=== PATIENT | male | born 1965 | race Caucasian/White ===

== ENCOUNTER 2017-05-13 14:09 | Inpatient (IN) | payer MEDICARE, MEDICAID ==
[~2017-05-13] VITALS: Ht 177.8 cm; Wt 104.3 kg
[2017-05-13 15:03] LABS: BASOPHILS % (AUTO) 1.3 % (0.0-2.0); EOSINOPHILS % (AUTO) 2.3 % (0.0-3.0); HEMATOCRIT 44.8 % (42.0-52.0); HEMOGLOBIN 16.2 G/DL (14.2-18.0); LYMPHOCYTES % (AUTO) 19.9 % (20.0-45.0); MEAN CORPUSCULAR VOLUME 92 FL (80-99); MONOCYTES % (AUTO) 9.5 % (1.0-10.0); PLATELET COUNT 239 K/UL (150-450); RED BLOOD COUNT 4.88 M/UL (4.70-6.10); RED CELL DISTRIBUTION WIDTH 11.2 % (11.6-14.8); WHITE BLOOD COUNT 8.3 K/UL (4.8-10.8)
--- NOTE | 2017-05-13 15:15 | Diagnostic Imaging Report ---
Indication: Headache Technique: Contiguous 5 mm thick transaxial imaging of the head obtained in a Siemens Sensation [address] scanner. Soft tissue and bone windows generated. Automatic Exposure Control was utilized. Total Dose length Product (DLP): [address] Dose Index Volume (CTDIvol): 0.15, 70.38 mGy Comparison: none Findings: The size and configuration of the cortical sulci, basal cisterns, and ventricles are within normal limits for age. There is no mass effect, midline shift, or edema identified. There is no evidence of acute hemorrhage or abnormal intra-axial or extra-axial fluid collections. The bones and soft tissues are unremarkable. Impression: No mass effect, edema or acute bleed. The CT scanner at [facility] is accredited by the [employer] and the scans are performed using dose optimization techniques as appropriate to a performed exam including Automatic Exposure control.
[2017-05-13 15:16] VITALS: BP 142/88
[2017-05-13 15:21] LABS: ANION GAP 10 mmol/L (5-15); BLOOD UREA NITROGEN 9 mg/dL (7-18); CALCIUM 9.3 MG/DL (8.5-10.1); CARBON DIOXIDE 26 MMOL/L (21-32); CHLORIDE 103 MMOL/L (98-107); CREATININE 0.8 MG/DL (0.55-1.30); POTASSIUM 4.2 MMOL/L (3.5-5.1); SODIUM 139 MMOL/L (136-145)
[2017-05-13 15:27] LABS: ALANINE AMINOTRANSFERASE 41 U/L (12-78); ALBUMIN 4.2 G/DL (3.4-5.0); ALKALINE PHOSPHATASE 54 U/L (46-116); ASPARTATE AMINO TRANSFERASE 20 U/L (15-37); BILIRUBIN,TOTAL 0.5 MG/DL (0.2-1.0); CHOLESTEROL 286 MG/DL (< 200); HDL CHOLESTEROL 26 MG/DL (40-60); TRIGLYCERIDES 340 MG/DL (30-150)
[2017-05-13] MEDS ORDERED: Albuterol/Ipratropium 3ml neb HHN ONE (15:45)
[2017-05-13] MEDS ORDERED: VITAMIN D250000 UNI1 ORAL (16:26)
[2017-05-13] MEDS ORDERED: RISPERDAL2 MG ORAL (16:26)
[2017-05-13] MEDS ORDERED: ATORVASTATIN CA20 MG ORAL (16:26)
[2017-05-13] MEDS ORDERED: BENAZEPRIL HCL10 MG ORAL (16:26)
--- NOTE | 2017-05-13 18:33 | Emergency Room Report ---
History of Present Illness General Chief Complaint: Stroke Symptoms Source: Patient, Medical Record Present Illness HPI This is a 51-year-old male who presented after increased left-sided facial and neck numbness. Patient had gradual onset of symptoms. He had prior history of schizophrenia. He reports being a smoker. He denies any vomiting. He had nonproductive cough. He denies any fever. Patient denies prior cardiac history Allergies: Coded Allergies: HALOPERIDOL (Verified Allergy, Intermediate, 05/13/17) Patient History Past Medical History: see triage record Reviewed Nursing Documentation: PMH: Agreed, PSxH: Agreed Nursing Documentation-PMH Past Medical History: No History, Except For History Of Psychiatric Problem: Yes - schizophrenia, insomnia Review of Systems All Other Systems: negative except mentioned in HPI Physical Exam Vital Signs Date Time Temp Pulse Resp B/P (MAP) Pulse Ox O2 Delivery O2 Flow Rate FiO2 05/13/17 14:30 97.9 112 33 153/97 96 Room Air 97.9 05/13/17 15:56 21 05/13/17 15:56 21.0 Sp02 EP Interpretation: reviewed, normal General Appearance: normal inspection, well appearing, no apparent distress, alert, GCS 15 Head: atraumatic ENT: normal ENT inspection, hearing grossly normal, normal voice Neck: normal inspection, full range of motion, supple, no bony tend Respiratory: normal inspection, lungs clear, normal breath sounds, no respiratory distress, no retraction, no wheezing Cardiovascular #1: regular rate, rhythm, no edema Gastrointestinal: normal inspection, normal bowel sounds, non tender, soft, no guarding, no hernia Genitourinary: no CVA tenderness Musculoskeletal: normal inspection, back normal, normal range of motion Neurologic: normal inspection, alert, oriented x3, responsive, wealth management manager III-XII nml as tested, speech normal Psychiatric: normal inspection, mood/affect normal, depressed affect Skin: normal inspection, normal color, no rash Medical Decision Making Diagnostic Impression: Primary Impression: ACS (acute coronary syndrome) ER Course Patient presented for a left-sided facial numbness . Differential diagnosis included but was not limited to CVA, acute coronary syndrome, pulmonary embolism , pneumonia, aortic dissection, shingles, pneumothorax, aortic dissection, esophageal rupture, pericarditis. Because of complexity of patient's case laboratory testing and imaging studies were ordered. CT the head read by radiology showed no evidence of acute CVA. Chest x-ray showed no evident infiltrate. Patient was given ASA. He was noted to have some concerning history. Dr. Menjivar was contacted for inpatient management due to panel physician. Labs Test 05/13/17 14:30 05/14/17 13:45 White Blood Count 8.3 K/UL (4.8-10.8) Red Blood Count 4.88 M/UL (4.70-6.10) Hemoglobin 16.2 G/DL (14.2-18.0) Hematocrit 44.8 % (42.0-52.0) Mean Corpuscular Volume 92 FL (80-99) Mean Corpuscular Hemoglobin 33.2 PG (27.0-31.0) Mean Corpuscular Hemoglobin Concent 36.1 G/DL (32.0-36.0) Red Cell Distribution Width 11.2 % (11.6-14.8) Platelet Count 239 K/UL (150-450) Mean Platelet Volume 7.2 FL (6.5-10.1) Neutrophils (%) (Auto) 67.0 % (45.0-75.0) Lymphocytes (%) (Auto) 19.9 % (20.0-45.0) Monocytes (%) (Auto) 9.5 % (1.0-10.0) Eosinophils (%) (Auto) 2.3 % (0.0-3.0) Basophils (%) (Auto) 1.3 % (0.0-2.0) Prothrombin Time 10.5 SEC (9.30-11.50) Prothromb Time International Ratio 1.0 (0.9-1.1) Activated Partial Thromboplast Time 27 SEC (23-33) Sodium Level 139 MMOL/L (136-145) Potassium Level 4.2 MMOL/L (3.5-5.1) Chloride Level 103 MMOL/L (98-107) Carbon Dioxide Level 26 MMOL/L (21-32) Anion Gap 10 mmol/L (5-15) Blood Urea Nitrogen 9 mg/dL (7-18) Creatinine 0.8 MG/DL (0.55-1.30) Estimat Glomerular Filtration Rate > 60 mL/min (>60) Glucose Level 116 MG/DL (74-106) Calcium Level 9.3 MG/DL (8.5-10.1) Total Bilirubin 0.5 MG/DL (0.2-1.0) Aspartate Amino Transf (AST/SGOT) 20 U/L (15-37) Alanine Aminotransferase (ALT/SGPT) 41 U/L (12-78) Alkaline Phosphatase 54 U/L (46-116) Total Protein 8.2 G/DL (6.4-8.2) Albumin 4.2 G/DL (3.4-5.0) Globulin 4.0 g/dL Albumin/Globulin Ratio 1.0 (1.0-2.7) Triglycerides Level 340 MG/DL (30-150) Cholesterol Level 286 MG/DL (< 200) LDL Cholesterol 198 mg/dL (<100) HDL Cholesterol 26 MG/DL (40-60) Cholesterol/HDL Ratio 11.0 (3.3-4.4) Troponin I 0.000 ng/mL (0.000-0.056) Last Vital Signs Date Time Temp Pulse Resp B/P (MAP) Pulse Ox O2 Delivery O2 Flow Rate FiO2 05/13/17 16:03 102 16 100 Room Air 21 05/13/17 15:56 21.0 05/13/17 15:16 97.9 142/88 97.9 Status: improved Condition: Stable Referrals: NON PHYSICIAN (PCP) Amari Soto May 13, 2017 18:33
[2017-05-13 19:00] VITALS: BP 129/88
[2017-05-13 20:00] VITALS: BP 129/88
[2017-05-13] MEDS ORDERED: Atorvastatin 20mg tab ORAL SCH (21:00)
[2017-05-14] VITALS: BP 116/73
[2017-05-14 04:00] VITALS: BP 106/66
[2017-05-14 08:00] VITALS: BP 108/59
[2017-05-14] MEDS: Benazepril 10mg tab ORAL SCH (08:09)
[2017-05-14] MEDS: Heparin 5000 units/ml inj SUBQ SCH ×2 (08:11→21:08)
[2017-05-14] MEDS ORDERED: Heparin 5000 units/ml inj SUBQ SCH (09:00)
--- NOTE | 2017-05-14 10:34 | History and Physical ---
History of Present Illness General Date patient seen: May 13, 2017 Reason for Hospitalization: Stroke Symptoms Present Illness HPI 51-year-old male with extensive psychiatry history, HTN, somker who presented after increased left-sided facial and neck numbness. Patient had gradual onset of symptoms. He denies any vomiting. He had nonproductive cough. He denies any fever. Pt is admitted to possible TIA, Allergies: Coded Allergies: HALOPERIDOL (Verified Allergy, Intermediate, 05/13/17) Medication History Scheduled Atorvastatin Calcium* (Atorvastatin Calcium*), 20 MG ORAL BEDTIME, (Reported) Benazepril Hcl* (Benazepril Hcl*), 5 MG ORAL DAILY, (Reported) Ergocalciferol (Vitamin D2)* (Vitamin D*), 50,000 UNIT ORAL ONCE A WEEK, ( Reported) Risperidone* (Risperdal*), 4 MG ORAL HS, (Reported) Patient History Healthcare decision maker Resuscitation status Advanced Directive on File No Past Medical/Surgical History Past Medical/Surgical History: (1) Psychosis (2) Smoker Review of Systems Constitutional: Reports: malaise, weakness Eye: Reports: no symptoms ENT: Reports: no symptoms Respiratory: Reports: no symptoms Cardiovascular: Reports: no symptoms Physical Exam General Appearance: WD/WN Lines, tubes and drains: peripheral HEENT: normocephalic, atraumatic Neck: non-tender, normal alignment, supple Respiratory/Chest: chest wall non-tender, lungs clear Breasts: no masses Cardiovascular/Chest: normal peripheral pulses Abdomen: normal bowel sounds, hyperactive bowel sounds Last 24 Hour Vital Signs Date Time Temp Pulse Resp B/P (MAP) Pulse Ox O2 Delivery O2 Flow Rate FiO2 05/14/17 09:00 112 05/14/17 08:09 108/59 05/14/17 08:00 97.3 100 20 108/59 95 Room Air 05/14/17 04:00 75 05/14/17 04:00 97.2 60 20 106/66 96 Room Air 05/14/17 00:00 97.7 78 20 116/73 94 Room Air 05/14/17 00:00 75 05/13/17 20:00 98.1 20 129/88 97 Room Air 05/13/17 20:00 71 05/13/17 19:00 98.0 21 129/88 97 Room Air 05/13/17 18:30 97.9 16 142/88 100 Room Air 21.0 21 97.9 05/13/17 16:03 102 16 100 Room Air 21 05/13/17 15:56 100 17 99 Room Air 21.0 05/13/17 15:56 100 17 Room Air 21 05/13/17 15:16 97.9 25 142/88 96 Room Air 97.9 05/13/17 14:30 97.9 112 33 153/97 96 Room Air 97.9 Intake and Output 05/13/17 05/14/17 19:00 07:00 Intake Total 0 ml 240 ml Balance 0 ml 240 ml Intake Oral 0 ml 240 ml # Voids 1 Laboratory Tests Test 05/13/17 14:30 05/13/17 16:29 White Blood Count 8.3 K/UL (4.8-10.8) Red Blood Count 4.88 M/UL (4.70-6.10) Hemoglobin 16.2 G/DL (14.2-18.0) Hematocrit 44.8 % (42.0-52.0) Mean Corpuscular Volume 92 FL (80-99) Mean Corpuscular Hemoglobin 33.2 PG (27.0-31.0) H Mean Corpuscular Hemoglobin Concent 36.1 G/DL (32.0-36.0) H Red Cell Distribution Width 11.2 % (11.6-14.8) L Platelet Count 239 K/UL (150-450) Mean Platelet Volume 7.2 FL (6.5-10.1) Neutrophils (%) (Auto) 67.0 % (45.0-75.0) Lymphocytes (%) (Auto) 19.9 % (20.0-45.0) L Monocytes (%) (Auto) 9.5 % (1.0-10.0) Eosinophils (%) (Auto) 2.3 % (0.0-3.0) Basophils (%) (Auto) 1.3 % (0.0-2.0) Prothrombin Time 10.5 SEC (9.30-11.50) Prothromb Time International Ratio 1.0 (0.9-1.1) Activated Partial Thromboplast Time 27 SEC (23-33) Sodium Level 139 MMOL/L (136-145) Potassium Level 4.2 MMOL/L (3.5-5.1) Chloride Level 103 MMOL/L (98-107) Carbon Dioxide Level 26 MMOL/L (21-32) Anion Gap 10 mmol/L (5-15) Blood Urea Nitrogen 9 mg/dL (7-18) Creatinine 0.8 MG/DL (0.55-1.30) Estimat Glomerular Filtration Rate > 60 mL/min (>60) Glucose Level 116 MG/DL (74-106) H Calcium Level 9.3 MG/DL (8.5-10.1) Total Bilirubin 0.5 MG/DL (0.2-1.0) Aspartate Amino Transf (AST/SGOT) 20 U/L (15-37) Alanine Aminotransferase (ALT/SGPT) 41 U/L (12-78) Alkaline Phosphatase 54 U/L (46-116) Total Protein 8.2 G/DL (6.4-8.2) Albumin 4.2 G/DL (3.4-5.0) Globulin 4.0 g/dL Albumin/Globulin Ratio 1.0 (1.0-2.7) Triglycerides Level 340 MG/DL (30-150) H Cholesterol Level 286 MG/DL (< 200) H LDL Cholesterol 198 mg/dL (<100) H HDL Cholesterol 26 MG/DL (40-60) L Cholesterol/HDL Ratio 11.0 (3.3-4.4) H Troponin I 0.000 ng/mL (0.000-0.056) Height (Feet): 5 Height (Inches): 10.00 Weight (Pounds): 230 Medications Current Medications Medications (Trade) Dose Ordered Sig/Mary Route PRN Reason Start Time Stop Time Status Last Admin Dose Admin Atorvastatin Calcium (Lipitor) 20 mg BEDTIME ORAL 05/13/17 21:00 06/12/17 20:59 05/13/17 23:29 Benazepril HCl (Lotensin) 5 mg DAILY ORAL 05/14/17 09:00 06/13/17 08:59 05/14/17 08:09 Heparin Sodium (Porcine) (Heparin 5000 units/ml) 5,000 units EVERY 12 HOURS SUBQ 05/14/17 09:00 06/13/17 08:59 05/14/17 08:11 Risperidone (RisperDAL) 3 mg BEDTIME ORAL 05/14/17 21:00 06/13/17 20:59 Assessment/Plan Problem List: (1) TIA (transient ischemic attack) ICD Codes: G45.9 - Transient cerebral ischemic attack, unspecified SNOMED: 066124930 (2) ACS (acute coronary syndrome) ICD Codes: I24.9 - Acute ischemic heart disease, unspecified SNOMED: 383012799 (3) Psychosis ICD Codes: F29 - Unspecified psychosis not due to a substance or known physiological condition SNOMED: 63507734 (4) Smoker ICD Codes: F17.200 - Nicotine dependence, unspecified, uncomplicated SNOMED: 59397738 Assessment/Plan echo doppler of carotid artery neuro evaluation cardiac evaluation monitor BP telemetry CARLOS KENNEDY May 14, 2017 10:34
--- NOTE | 2017-05-14 10:58 | Diagnostic Imaging Report ---
Indication: Dyspnea Comparison: None A single view chest radiograph was obtained. Findings: Cardiomediastinal appearance is within normal limits for age. Pulmonary vascularity is appropriate. The diaphragmatic contour is smooth and costophrenic angles are sharp. No pleural effusions are identified. The bones are osteopenic. Impression: No acute findings
--- NOTE | 2017-05-14 11:39 | Pulmonology Progress Note ---
Assessment/Plan Problems: (1) TIA (transient ischemic attack) (2) ACS (acute coronary syndrome) (3) Psychosis (4) Smoker Assessment/Plan f/u cardio recommendatins psych and neuro to see. watch bp dvt propylaxis check echo doppler of carotid artery Subjective ROS Limited/Unobtainable: No Constitutional: Reports: no symptoms HEENT: Repors: no symptoms Respiratory: Reports: no symptoms Allergies: Coded Allergies: HALOPERIDOL (Verified Allergy, Intermediate, 05/13/17) Objective Last 24 Hour Vital Signs Date Time Temp Pulse Resp B/P (MAP) Pulse Ox O2 Delivery O2 Flow Rate FiO2 05/14/17 09:00 112 05/14/17 08:09 108/59 05/14/17 08:00 97.3 100 20 108/59 95 Room Air 05/14/17 04:00 75 05/14/17 04:00 97.2 60 20 106/66 96 Room Air 05/14/17 00:00 97.7 78 20 116/73 94 Room Air 05/14/17 00:00 75 05/13/17 20:00 98.1 20 129/88 97 Room Air 05/13/17 20:00 71 05/13/17 19:00 98.0 21 129/88 97 Room Air 05/13/17 18:30 97.9 16 142/88 100 Room Air 21.0 21 97.9 05/13/17 16:03 102 16 100 Room Air 21 05/13/17 15:56 100 17 99 Room Air 21.0 05/13/17 15:56 100 17 Room Air 21 05/13/17 15:16 97.9 25 142/88 96 Room Air 97.9 05/13/17 14:30 97.9 112 33 153/97 96 Room Air 97.9 Intake and Output 05/13/17 05/14/17 19:00 07:00 Intake Total 0 ml 240 ml Balance 0 ml 240 ml Intake Oral 0 ml 240 ml # Voids 1 General Appearance: WD/WN HEENT: normocephalic Respiratory/Chest: chest wall non-tender, lungs clear Cardiovascular: normal peripheral pulses, normal rate Abdomen: soft, non tender Genitourinary: normal external genitalia Skin: no rash 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2, Chloride Level 103, Carbon Dioxide Level 26, Anion Gap 10, Blood Urea Nitrogen 9, Creatinine 0.8, Estimat Glomerular Filtration Rate > 60, Glucose Level 116H, Calcium Level 9.3, Total Bilirubin 0.5, Aspartate Amino Transf (AST/SGOT) 20, Alanine Aminotransferase (ALT/SGPT) 41, Alkaline Phosphatase 54, Total Protein 8.2, Albumin 4.2, Globulin 4.0, Albumin/Globulin Ratio 1.0, Triglycerides Level 340H, Cholesterol Level 286H, LDL Cholesterol 198H, HDL Cholesterol 26L, Cholesterol/HDL Ratio 11.0H 05/13/17 16:29: Troponin I 0.000 Current Medications Medications (Trade) Dose Ordered Sig/Mary Route PRN Reason Start Time Stop Time Status Last Admin Dose Admin Atorvastatin Calcium (Lipitor) 20 mg BEDTIME ORAL 05/13/17 21:00 06/12/17 20:59 05/13/17 23:29 Benazepril HCl (Lotensin) 5 mg DAILY ORAL 05/14/17 09:00 06/13/17 08:59 05/14/17 08:09 Heparin Sodium (Porcine) (Heparin 5000 units/ml) 5,000 units EVERY 12 HOURS SUBQ 05/14/17 09:00 06/13/17 08:59 05/14/17 08:11 Risperidone (RisperDAL) 3 mg BEDTIME ORAL 05/14/17 21:00 06/13/17 20:59 CARLOS KENNEDY May 14, 2017 11:39
--- NOTE | 2017-05-14 13:21 | Cardiology Progress Note ---
Assessment/Plan Assessment/Plan repeat ekg and trop pain very atypcial not exertiona and last only a few seconds if trop an ekg on repat are normla will not pursuit inpt cochran increase statin [id number] Objective Last 24 Hour Vital Signs Date Time Temp Pulse Resp B/P (MAP) Pulse Ox O2 Delivery O2 Flow Rate FiO2 05/14/17 09:00 112 05/14/17 08:09 108/59 05/14/17 08:00 97.3 100 20 108/59 95 Room Air 05/14/17 04:00 75 05/14/17 04:00 97.2 60 20 106/66 96 Room Air 05/14/17 00:00 97.7 78 20 116/73 94 Room Air 05/14/17 00:00 75 05/13/17 20:00 98.1 20 129/88 97 Room Air 05/13/17 20:00 71 05/13/17 19:00 98.0 21 129/88 97 Room Air 05/13/17 18:30 97.9 16 142/88 100 Room Air 21.0 21 97.9 05/13/17 16:03 102 16 100 Room Air 21 05/13/17 15:56 100 17 99 Room Air 21.0 05/13/17 15:56 100 17 Room Air 21 05/13/17 15:16 97.9 25 142/88 96 Room Air 97.9 05/13/17 14:30 97.9 112 33 153/97 96 Room Air 97.9 Intake and Output 05/13/17 05/14/17 19:00 07:00 Intake Total 0 ml 240 ml Balance 0 ml 240 ml Intake Oral 0 ml 240 ml # Voids 1 Laboratory Tests Test 05/13/17 14:30 05/13/17 16:29 White Blood Count 8.3 K/UL (4.8-10.8) Red Blood Count 4.88 M/UL (4.70-6.10) Hemoglobin 16.2 G/DL (14.2-18.0) Hematocrit 44.8 % (42.0-52.0) Mean Corpuscular Volume 92 FL (80-99) Mean Corpuscular Hemoglobin 33.2 PG (27.0-31.0) H Mean Corpuscular Hemoglobin Concent 36.1 G/DL (32.0-36.0) H Red Cell Distribution Width 11.2 % (11.6-14.8) L Platelet Count 239 K/UL (150-450) Mean Platelet Volume 7.2 FL (6.5-10.1) Neutrophils (%) (Auto) 67.0 % (45.0-75.0) Lymphocytes (%) (Auto) 19.9 % (20.0-45.0) L Monocytes (%) (Auto) 9.5 % (1.0-10.0) Eosinophils (%) (Auto) 2.3 % (0.0-3.0) Basophils (%) (Auto) 1.3 % (0.0-2.0) Prothrombin Time 10.5 SEC (9.30-11.50) Prothromb Time International Ratio 1.0 (0.9-1.1) Activated Partial Thromboplast Time 27 SEC (23-33) Sodium Level 139 MMOL/L (136-145) Potassium Level 4.2 MMOL/L (3.5-5.1) Chloride Level 103 MMOL/L (98-107) Carbon Dioxide Level 26 MMOL/L (21-32) Anion Gap 10 mmol/L (5-15) Blood Urea Nitrogen 9 mg/dL (7-18) Creatinine 0.8 MG/DL (0.55-1.30) Estimat Glomerular Filtration Rate > 60 mL/min (>60) Glucose Level 116 MG/DL (74-106) H Calcium Level 9.3 MG/DL (8.5-10.1) Total Bilirubin 0.5 MG/DL (0.2-1.0) Aspartate Amino Transf (AST/SGOT) 20 U/L (15-37) Alanine Aminotransferase (ALT/SGPT) 41 U/L (12-78) Alkaline Phosphatase 54 U/L (46-116) Total Protein 8.2 G/DL (6.4-8.2) Albumin 4.2 G/DL (3.4-5.0) Globulin 4.0 g/dL Albumin/Globulin Ratio 1.0 (1.0-2.7) Triglycerides Level 340 MG/DL (30-150) H Cholesterol Level 286 MG/DL (< 200) H LDL Cholesterol 198 mg/dL (<100) H HDL Cholesterol 26 MG/DL (40-60) L Cholesterol/HDL Ratio 11.0 (3.3-4.4) H Troponin I 0.000 ng/mL (0.000-0.056) LAUREL CRAWFORD May 14, 2017 13:21
--- NOTE | 2017-05-14 14:37 | Neurology Progress Note ---
Interim History Interim History ROS Limited/Unobtainable: No Objective Physical Exam Last Vital Signs Date Time Temp Pulse Resp B/P (MAP) Pulse Ox O2 Delivery O2 Flow Rate FiO2 05/14/17 12:00 117 05/14/17 08:09 108/59 05/14/17 08:00 97.3 20 95 Room Air 05/13/17 18:30 21.0 21 Laboratory Tests Test 05/13/17 16:29 05/14/17 13:45 Troponin I 0.000 ng/mL (0.000-0.056) Pending Impression/Recommendations Problems: (1) TIA (transient ischemic attack) (2) HTN (hypertension) (3) Hyperlipidemia (4) Nicotine addiction (5) Obesity Status: unchanged Recommendations #[id number] TOY BRUMFIELD May 14, 2017 14:37
[2017-05-14] MEDS: Aspirin Baby 81mg ORAL SCH (15:07)
[2017-05-14 15:47] VITALS: BP 139/91
--- NOTE | 2017-05-14 17:02 | Cardiology Report ---
APPROVED REPORT EKG Measurement Heart [id number] MS [id number] Sinus tachycardia Inferior infarct, age undetermined Abnormal ECG
--- NOTE | 2017-05-14 19:30 | Consultation ---
DATE OF CONSULTATION: 05/14/2017 NEUROLOGICAL CONSULTATION CONSULTING PHYSICIAN: Rocky Yang M.D. REFERRING PHYSICIAN: Cecilia eMnjivar M.D. HISTORY OF PRESENT ILLNESS: The patient is a 51-year-old gentleman seen in neurological consultation to evaluate the possible transient ischemic attack. According to the patient, yesterday in the morning, he was doing fairly well, then around 9 a.m. he had a quite a sudden onset of sensation of acute bend in the left temporal region, left neck region with numbness in the left side of the head and left side of the neck, this spread to the left upper extremity with some shooting pain sensation, numbness in the left side of the face and left lip. The patient became very concerned that this may represent a stroke, called paramedics and arrived to the emergency room. On arrival, heart rate 112, blood pressure 152/97. He was afebrile. His examination described as normal. Maday coma scale was 15. Diagnostic studies included CBC which was unremarkable as well as coagulation was normal and he had chemistry panel with elevated triglyceride 340, cholesterol 286, LDL 198, low HDL. Blood sugar 116, normal troponin. Imaging studies included CAT scan of the brain, no acute abnormalities noted and chest x-ray revealed no acute findings. The patient indicated within the first couple of hours symptoms developed, they gradually resolved, although he still continued to have slight tightness sensation in the left side of the neck. The patient now recalled that very similar episode happened a couple months ago, he was hospitalized, his workup was negative and he was told "not to worry." PAST MEDICAL HISTORY: The patient has a history of chronic schizophrenia but also hyperlipidemia, hypertension. He is a smoker half pack per day. Social alcohol use. MEDICATIONS: Treatment prior to admission included benazepril 5 mg daily, atorvastatin, vitamin D supplement, and Risperdal 4 mg at bedtime. ALLERGIES: Haloperidol. FAMILY HISTORY: Noncontributory. SOCIAL HISTORY: He is a resident of [facility]. . REVIEW OF SYSTEMS: Slight tightness sensation in the left side of the neck and face but no numbness, no tingling. Denies headache or dizziness. Currently, no chest pain, no palpitations, no respiratory problems. Denies abdominal pain or discomfort. No urine or bowel incontinence. PHYSICAL EXAMINATION: GENERAL: The patient is well-developed, moderately obese, deconditioned appearing man, not in acute distress. VITAL SIGNS: His vital signs are now stable. Blood pressure 108/59, heart rate of 112, temperature 97.3. HEENT: Head is normocephalic. There is no evidence of injuries. Eyes, ears, and throat are clear. NECK: Supple. No meningeal signs. MUSCULOSKELETAL: Unremarkable. There are no deformities. Peripheral pulses 1+ symmetric. MENTAL STATUS: He is alert and oriented x3 with no evidence of aphasia or apraxia. Cognitive function normal. Emotionally labile, tense, and anxious. CRANIAL NERVE II: Pupils both responding to light and accommodation. Extraocular movement intact. No nystagmus. CRANIAL NERVE V: Normal corneal responses. CRANIAL NERVE VII: No facial asymmetry. CRANIAL NERVE VIII: Normal hearing. CRANIAL NERVE IX THROUGH XII: Within normal limits. MOTOR EXAMINATION: Normal muscle tone. Strength 5/5 in all extremities. No involuntary movement. Deep tendon reflexes 1+ symmetric with downgoing toes on both sides. SENSORY EXAMINATION: Normal to pinprick and light touch. Gait is stable. IMPRESSION: 1. Recurrent episodes resembling transient ischemic attack, rule out panic attacks. 2. Multiple stroke risk factors including hypertension, hyperlipidemia, obesity, and nicotine dependency. 3. Chronic psychiatric disorder. RECOMMENDATIONS: 1. Check carotid duplex study. 2. Check MRI of the brain. 3. Start on aspirin 81 mg daily. 4. The patient need some modification of his lifestyle to stop smoking, start on daily exercises for weight loss control, the patient will need a strict blood pressure and hyperlipidemia control. 5. Psychiatry reassessment to address the issue of underlying anxiety. Thank you for allowing me to see this interesting patient in neurological consultation. Rocky Yang M.D. DR: Gonzalo JOB#: [id number] CC:
[2017-05-14 20:00] VITALS: BP 121/71
--- NOTE | 2017-05-14 20:30 | Consultation ---
DATE OF CONSULTATION: 05/14/2017 CARDIOLOGY CONSULTATION CONSULTING PHYSICIAN: Grant Stone M.D. REFERRING PHYSICIAN: Cecilia Menjivar M.D. REASON FOR REFERRAL: Chest pain. HISTORY OF PRESENT ILLNESS: This is a middle-aged gentleman with a series of medical problems with hyperlipidemia and hypertension, lives in a [facility]. The patient claims that he was having a concern about possibility of a stroke as he had some band of abnormal sensation in his neck and some numbness in the side of his face and some numbness and pain in the left arm. On detailed questioning, he had some pain in the chest that he says he intermittently gets, only lasts a few seconds, is not prohibitive, and not limiting his activities. He actively walks and he does climb stairs two flights on a regular basis and he has absolutely no pain, pressure, tightness, or heaviness in his chest that prevents him from doing those activities. There is no PND and no orthopnea. He uses one pillow. Occasional dizzy on standing. No heart pounding or palpitation. PAST MEDICAL HISTORY: Positive for high blood pressure and hyperlipidemia. No heart attack. No cancer. No stroke. No hepatitis, tuberculosis, asthma, or emphysema. No ulcers, kidney problems, liver problems, thyroid problems, anemia, arthritis, human immunodeficiency virus, AIDS, blood clots, prostate problems, or any other medical problems except schizophrenia. SOCIAL HISTORY: He smokes about half a pack a day. He does not drink alcoholic beverages, he used to before and he used to use marijuana as a young man. REVIEW OF SYSTEMS: GASTROINTESTINAL: Negative. GENITOURINARY: Negative. PULMONARY: Negative. CONSTITUTIONAL: Negative. MUSCULOSKELETAL: Negative. NEUROLOGICAL: As mentioned in the history of present illness. PHYSICAL EXAMINATION: GENERAL: A middle-aged gentleman, in no respiratory distress. NECK: Supple. No jugular venous distention. No abdominojugular reflux noted. LUNGS: Clear to auscultation and percussion. CARDIAC: S1 is normal. S2 is normal. Regular rate and rhythm. No heaves, thrills, gallops, or rubs are noted. ABDOMEN: Soft and nontender. Positive bowel sounds. EXTREMITIES: There is no clubbing, cyanosis, nor is there any edema. NEUROLOGICAL: He is awake, alert, responsive, and in no apparent respiratory distress. Moves all four extremities. LABORATORY AND DIAGNOSTIC DATA: White count 8.3, hemoglobin 16.2, and a platelet count of 239,000. Sodium is 139, potassium 4.2, chloride 103, bicarb 24, BUN of 9, creatinine 0.8, and glucose of 116. Troponin 0. Triglycerides of 340. Total cholesterol is 286 with a LDL of 198 and HDL of 26. His INR is 1.0. His chest x-ray shows no acute findings. A CT scan of his head that was performed in the emergency room showed no mass, edema, . Normal sinus rhythm on the EKG. No ST or T-wave abnormalities. ASSESSMENT: 1. Chest pain, very atypical. 2. Hypertension. 3. Hyperlipidemia. 4. Left facial numbness. PLAN: Dr. Menjivar, this patient was seen in cardiac consultation. The patient's first set of cardiac enzymes is negative. We will repeat the second cardiac enzymes. The pain is very atypical lasting only a second. He is actually active and does not experience any chest pain or pressure with activity. Therefore, I am not suspicious of this particular pain, although repeat EKGs and echocardiogram and troponin are pending at this time. If those results are negative, then I would not consider any inpatient workup any further at this time. He should be on a statin, which he is now taking only 20 mg. I will increase the dose of the statin to 80 mg in light of significant hyperlipidemia that is showing at this time as a preventive measure. Grant Stone M.D. DR: BRUCE JOB#: [id number] CC:
[2017-05-14] MEDS ORDERED: Atorvastatin 20mg tab ORAL SCH (21:00)
[2017-05-15] VITALS: BP 105/69
[2017-05-15 04:00] VITALS: BP 114/76
[2017-05-15] MEDS: Aspirin Baby 81mg ORAL SCH (08:34)
[2017-05-15 08:36] VITALS: BP 126/86
[2017-05-15] MEDS: Benazepril 10mg tab ORAL SCH (08:36)
[2017-05-15] MEDS: Heparin 5000 units/ml inj SUBQ SCH (08:38)
--- NOTE | 2017-05-15 12:16 | Neurology Progress Note ---
Interim History Interim History ROS Limited/Unobtainable: No Complaints: slight pull L lips Events: stable refused MRI Objective Physical Exam Last Vital Signs Date Time Temp Pulse Resp B/P (MAP) Pulse Ox O2 Delivery O2 Flow Rate FiO2 05/15/17 08:36 126/86 05/15/17 08:00 133 05/15/17 04:00 97.7 20 97 Room Air 05/13/17 18:30 21.0 21 Laboratory Tests Test 05/14/17 13:45 Troponin I 0.000 ng/mL (0.000-0.056) General: well developed, no acute distress, other - obese Head: normocophalic, atraumatic Neck: no rigidity EENT: benign Neurologic Exam Mental Status: awake, alert, oriented x4, normal cognition, good mathematical skills, normal recent memory, normal remote memory, preserved visuospatial function, other - very anxious Speech: normal speech, no dysarthia Language: normal language, no aphasia Cranial Nerve II: fundus normal, visual sidhu, no papilledema Cranial Nerves III, IV, : PERRLA, EOMI, pupils Cranial Nerve V: normal facial sensations, temporales function normal, masseters function normal, pterygoids function normal Cranial Nerve VII: no facial asymmetry, normal facial expressions Cranial Nerve VIII: normal hearing, no nystagmus Cranial Nerve IX: normal palate elevation, gag response Cranial Nerve X: no voice hoarseness Cranial Nerve XI: SCM symmetric, trapezii function normal Cranial Nerve XII: tongue midline, no tongue atrophy/fasciculations Motor System: normal muscle tone, strength 5/5, no involuntary movement, no muscle wasting Sensory: normal pinprick, normal light touch, normal position sense, normal graphesthesia Coordination: normal finger to nose bilaterally, normal heel to vincent bilaterally, negative Romberg test Deep Tendon Reflexes: 2+ bicep (L), 2+ bicep (R), 2+ tricep (L), 2+ tricep (R) , 2+ brachioradialis (L), 2+ brachioradialis (R), 2+ knee (L), 2+ knee (R), 2+ ankle (L), 2+ ankle (R) Stance: normal Gait: stable, normal regular, heel + toe gait Impression/Recommendations Problems: (1) TIA (transient ischemic attack) (2) HTN (hypertension) (3) Hyperlipidemia (4) Nicotine addiction (5) Obesity Status: stable, unchanged Recommendations #[id number] carotid MRI brain asa 81mg statins TOY BRUMFIELD May 15, 2017 12:16
--- NOTE | 2017-05-15 20:48 | Consultation ---
History of Present Illness General Date patient seen: May 13, 2017 Chief Complaint: Stroke Symptoms Present Illness HPI 51-year-old gentleman with hx of schizophrenia who pw disorganized speech and anxiety hopelessness/ the pt is malodorous and disheveled and is anxious. no si/ hi Allergies: Coded Allergies: HALOPERIDOL (Verified Allergy, Intermediate, 05/13/17) Medication History Scheduled Atorvastatin Calcium* (Atorvastatin Calcium*), 20 MG ORAL BEDTIME, (Reported) Benazepril Hcl* (Benazepril Hcl*), 5 MG ORAL DAILY, (Reported) Ergocalciferol (Vitamin D2)* (Vitamin D*), 50,000 UNIT ORAL ONCE A WEEK, ( Reported) Risperidone* (Risperdal*), 4 MG ORAL HS, (Reported) Patient History Limited by: medical condition History Provided By: Patient, Medical Record, PMD Healthcare decision maker Resuscitation status Advanced Directive on File No Past Medical/Surgical History Past Medical/Surgical History: (1) Psychosis (2) TIA (transient ischemic attack) (3) ACS (acute coronary syndrome) (4) Hyperlipidemia (5) Nicotine addiction (6) Obesity (7) HTN (hypertension) Review of Systems Psychiatric: Reports: prior hx, anxiety, depressed feelings, emotional problems Physical Exam General Appearance: alert Neurologic: alert, oriented x 3, responsive, depressed affect Last 24 Hour Vital Signs Date Time Temp Pulse Resp B/P (MAP) Pulse Ox O2 Delivery O2 Flow Rate FiO2 05/15/17 08:36 126/86 05/15/17 08:00 133 05/15/17 04:00 97.7 76 20 114/76 97 Room Air 05/15/17 04:00 74 05/15/17 00:00 74 05/15/17 00:00 97.9 80 20 105/69 95 Room Air Intake and Output 05/14/17 05/15/17 19:00 07:00 Intake Total 800 ml Balance 800 ml Intake Oral 800 ml # Voids 3 2 Height (Feet): 5 Height (Inches): 10.00 Weight (Pounds): 230 Assessment/Plan Status: unchanged Assessment/Plan schizophrenia Arthur De La Torre M.D. May 15, 2017 20:48
--- NOTE | 2017-05-15 20:49 | General Progress Note ---
Assessment/Plan Assessment/Plan the pt was agitated and received cocktail Subjective Date patient seen: May 14, 2017 Neurologic/Psychiatric: Reports: anxiety, depressed, emotional problems Allergies: Coded Allergies: HALOPERIDOL (Verified Allergy, Intermediate, 05/13/17) Objective Last 24 Hour Vital Signs Date Time Temp Pulse Resp B/P (MAP) Pulse Ox O2 Delivery O2 Flow Rate FiO2 05/15/17 08:36 126/86 05/15/17 08:00 133 05/15/17 04:00 97.7 76 20 114/76 97 Room Air 05/15/17 04:00 74 05/15/17 00:00 74 05/15/17 00:00 97.9 80 20 105/69 95 Room Air Intake and Output 05/14/17 05/15/17 19:00 07:00 Intake Total 800 ml Balance 800 ml Intake Oral 800 ml # Voids 3 2 Height (Feet): 5 Height (Inches): 10.00 Weight (Pounds): 230 General Appearance: no apparent distress, alert Neurologic: alert, oriented x 3, responsive, depressed affect Arthur Reid M.D. May 15, 2017 20:49
--- NOTE | 2017-05-15 20:50 | General Progress Note ---
Assessment/Plan Status: unchanged Assessment/Plan schizophrenia cont seroquel Subjective Date patient seen: May 15, 2017 Neurologic/Psychiatric: Reports: anxiety, depressed, emotional problems Allergies: Coded Allergies: HALOPERIDOL (Verified Allergy, Intermediate, 05/13/17) Objective Last 24 Hour Vital Signs Date Time Temp Pulse Resp B/P (MAP) Pulse Ox O2 Delivery O2 Flow Rate FiO2 05/15/17 08:36 126/86 05/15/17 08:00 133 05/15/17 04:00 97.7 76 20 114/76 97 Room Air 05/15/17 04:00 74 05/15/17 00:00 74 05/15/17 00:00 97.9 80 20 105/69 95 Room Air Intake and Output 05/14/17 05/15/17 19:00 07:00 Intake Total 800 ml Balance 800 ml Intake Oral 800 ml # Voids 3 2 Height (Feet): 5 Height (Inches): 10.00 Weight (Pounds): 230 General Appearance: no apparent distress, alert, agitated Neurologic: alert, oriented x 3, responsive, depressed affect Arthur Reid M.D. May 15, 2017 20:50
--- NOTE | 2017-05-16 16:42 | Discharge Summary ---
Discharge Summary Hospital Course Date of Admission May 13, 2017 at 16:17 Date of Discharge May 15, 2017 at 14:00 Admitting Diagnosis ACS, CHEST PAIN HPI Shin Bartlett is a 51 year old male who was admitted on May 13, 2017 at 16:17 for Acute Coronary Syndrome/Chest Pain Hospital Course [id number] Discharge Discharge Disposition Patient was discharged to [facility] (01) Discharge Diagnoses: Janel Tello NP May 16, 2017 16:42
--- NOTE | 2017-05-17 01:00 | Discharge Summary 2 SIG ---
DATE OF ADMISSION: 05/13/2017 DATE OF DISCHARGE: 05/15/2017 CONSULTANTS: 1. Arthur Reid M.D. 2. Rocky Yang M.D. 3. Grant Stone M.D. BRIEF HOSPITAL COURSE: The patient is a 51-year-old male with extensive psychiatric history with past medical history of hypertension and is a smoker, presented after increased left-sided facial and neck numbness. The patient had gradual onset of symptoms and denied any vomiting or fever. On evaluation at ED, blood work showed no leukocytosis. Troponin was negative. He had a head CT that showed no mass effect, edema, or acute bleed. Chest x-ray showed no acute findings. He was admitted for possible TIA. He underwent neurologic evaluation. The patient's symptoms have resolved. He was started on aspirin and was counseled on the need to stop smoking and was encouraged exercise for weight control, blood pressure and hyperlipidemia control. He was recommended MRI, however, the patient refused. He was seen by Dr. Stone. EKG was in normal sinus rhythm with no ST or T-wave abnormalities. Cardiac enzymes were negative. Lipid panel was checked. Lipitor was increased to 40 mg. Carotid ultrasound did not show any significant plaques. Psychiatric evaluation was done. The patient was diagnosed with schizophrenia and was given Seroquel. He was eventually discharged home. FINAL DIAGNOSES: 1. Acute transient ischemic attack. 2. Schizophrenia. 3. Hyperlipidemia. 4. Current smoker. 5. Agitation. 6. Obesity. 7. Hypertension. DISPOSITION: The patient was discharged back to his board and care. DISCHARGE MEDICATIONS: Refer to medication list. DISCHARGE INSTRUCTIONS: Follow up with PMD in a week. Cecilia Menjivar M.D. I have been assigned to dictate discharge summary on this account and I was not involved in the patient's management. Janel Tello N.P. DR: LISA/CHRIS JOB#: [id number] CC:
--- NOTE | 2017-05-17 14:46 | Cardiology Report ---
APPROVED REPORT EKG Measurement Heart [id number] Normal sinus rhythm Low voltage QRS Possible Lateral infarct, age undetermined Possible Inferior infarct, age undetermined Abnormal ECG
--- NOTE | 2017-05-22 22:00 | Diagnostic Imaging Report ---
APPROVED REPORT CPT Code: 50956 Vascular Symptoms Comments: Left side weakness CAROTID (BILATERAL) - Imaging reveals no significant plaque within the right and left extracranial carotid arteries. The Doppler spectral flow analysis is within normal limits throughout the extracranial carotid arteries bilaterally. VERTEBRAL- The vertebral arteries are within normal limits.
== END 2017-05-15 14:00 | DRG 69 ==
LOC: EMR 14:50 → EDBEDREQ 16:04 → 2E 16:17 → EDBEDREQ 16:30 → 2E 19:11
DX: G45.9 Transient cerebral ischemic attack, unspecified (principal); F20.9 Schizophrenia, unspecified; I10 Essential (primary) hypertension; E78.5 Hyperlipidemia, unspecified; F17.200 Nicotine dependence, unspecified, uncomplicated; E66.9 Obesity, unspecified; R45.1 Restlessness and agitation; Z88.8 Allergy status to other drugs, medicaments and biological substances; R07.89 Other chest pain
CPT/HCPCS: 36415; 70450; 71045; 80053; 80061; 82962; 84484; 85025; 85610; 85730; 93005; 93880; 94640; 94664; 99285; J7620

== ENCOUNTER 2017-05-29 14:26 | Emergency (ER) | payer MEDICARE, MEDICAID ==
[~2017-05-29] VITALS: Ht 177.8 cm; Wt 104.3 kg
[~2017-05-29 14:26] MED LIST: ATORVASTATIN CA20 MG ORAL; BENAZEPRIL HCL10 MG ORAL; RISPERDAL2 MG ORAL; VITAMIN D250000 UNI1 ORAL
[2017-05-29] MEDS ORDERED: VITAMIN D250000 UNI1 ORAL (14:39)
[2017-05-29] MEDS ORDERED: BENAZEPRIL HCL5 MG ORAL (14:39)
--- NOTE | 2017-05-29 14:59 | Emergency Room Report ---
History of Present Illness General Chief Complaint: Chest Pain Source: Patient Present Illness HPI 51-year-old male presents ED complaining of chest pain. Patient states chest pain started approximately 3 days ago. On and off. Sharp, midsternal, nonradiating. Denies shortness of breath. Patient was admitted approximately 2 weeks ago for similar presentation. Denies drug use. Significant psychiatric history. Denies anxiety. Denies hearing voices. No other aggravating relieving factors. Denies any other associated symptoms Allergies: Coded Allergies: HALOPERIDOL (Verified Allergy, Intermediate, 05/13/17) Patient History Past Medical History: HTN, psych hx Past Surgical History: none Pertinent Family History: none Social History: Denies: smoking, alcohol use, drug use Immunizations: UTD Reviewed Nursing Documentation: PMH: Agreed, PSxH: Agreed Nursing Documentation-PMH Hx Cardiac Problems: Yes - High cholesterol Hx Hypertension: Yes Hx Cancer: No Hx Gastrointestinal Problems: No History Of Psychiatric Problem: Yes - Schizophrenia Hx Neurological Problems: No Review of Systems All Other Systems: negative except mentioned in HPI Physical Exam Vital Signs Date Time Temp Pulse Resp B/P (MAP) Pulse Ox O2 Delivery O2 Flow Rate FiO2 05/29/17 14:33 97.9 101 21 133/90 97 Room Air 97.9 Sp02 EP Interpretation: reviewed, normal General Appearance: no apparent distress, alert, GCS 15, non-toxic Head: normocephalic, atraumatic Eyes: bilateral eye normal inspection, bilateral eye PERRL ENT: hearing grossly normal, normal pharynx, no angioedema, normal voice Neck: full range of motion, supple/symm/no masses Respiratory: chest non-tender, lungs clear, normal breath sounds, speaking full sentences Cardiovascular #1: regular rate, rhythm, no edema Cardiovascular #2: 2+ carotid (R), 2+ carotid (L), 2+ radial (R), 2+ radial (L) , 2+ dorsalis pedis (R), 2+ dorsalis pedis (L) Gastrointestinal: normal bowel sounds, non tender, soft, non-distended, no guarding, no rebound Rectal: deferred Genitourinary: normal inspection, no CVA tenderness Musculoskeletal: back normal, gait/station normal, normal range of motion, non- tender Neurologic: alert, oriented x3, responsive, motor strength/tone normal, sensory intact, speech normal Psychiatric: judgement/insight normal, memory normal, no suicidal/homicidal ideation, anxious Reflexes: 3+ bicep (R), 3+ bicep (L), 3+ tricep (R), 3+ tricep (L), 3+ knee (R) , 3+ knee (L) Skin: normal color, no rash, warm/dry, well hydrated Lymphatic: no adenopathy Medical Decision Making Diagnostic Impression: Primary Impression: Chest pain Qualified Codes: R07.9 - Chest pain, unspecified ER Course Hospital Course 51-year-old M presents ED complaining of chest pain Differential diagnoses include: Rib fracture, IL/unstable angina, contusion, muscle strain Clinical course Patient placed on stretcher. After initial history and physical I ordered labs , EKG, chest x-ray. labs reviewed- all electrolytes normal, troponins negative, no leukocytosis, hemoglobin/hematocrit stable EKG - NSR, no acute ischemic changes interpreted by me Chest x-ray-no cardiomegaly, no rib fracture, no pneumothorax, no acute process Patient was admitted here approximately 2 weeks ago for ACS rule out. Serial troponins were negative. Was evaluated by cardiology - believe the pain was atypical and not likely cardiac Troponins. Again negative. I believe patient be safely discharged to home. Discussed findings with patient. Recommended close followup with PMD, cardiology as outpatient I. I feel this is a highly complex case requiring extensive working including EKG/Rhythm strip, Xray/CT/US, Blood/urine lab work, repeat exams while in ED, and administration of strong opiates/narcotics for pain control, admission to hospital or close patient follow up. Diagnosis - chest pain Stable and discharged to home. Instructed to followup with PMD. Return to ED if symptoms recur or worsen Labs Test 05/29/17 14:00 White Blood Count 8.0 K/UL (4.8-10.8) Red Blood Count 4.66 M/UL (4.70-6.10) Hemoglobin 15.1 G/DL (14.2-18.0) Hematocrit 43.7 % (42.0-52.0) Mean Corpuscular Volume 94 FL (80-99) Mean Corpuscular Hemoglobin 32.3 PG (27.0-31.0) Mean Corpuscular Hemoglobin Concent 34.4 G/DL (32.0-36.0) Red Cell Distribution Width 11.7 % (11.6-14.8) Platelet Count 220 K/UL (150-450) Mean Platelet Volume 7.2 FL (6.5-10.1) Neutrophils (%) (Auto) 69.6 % (45.0-75.0) Lymphocytes (%) (Auto) 19.5 % (20.0-45.0) Monocytes (%) (Auto) 7.8 % (1.0-10.0) Eosinophils (%) (Auto) 1.9 % (0.0-3.0) Basophils (%) (Auto) 1.1 % (0.0-2.0) Sodium Level 141 MMOL/L (136-145) Potassium Level 3.9 MMOL/L (3.5-5.1) Chloride Level 103 MMOL/L (98-107) Carbon Dioxide Level 29 MMOL/L (21-32) Anion Gap 9 mmol/L (5-15) Blood Urea Nitrogen 6 mg/dL (7-18) Creatinine 0.8 MG/DL (0.55-1.30) Estimat Glomerular Filtration Rate > 60 mL/min (>60) Glucose Level 96 MG/DL (74-106) Calcium Level 9.4 MG/DL (8.5-10.1) Total Bilirubin 0.5 MG/DL (0.2-1.0) Aspartate Amino Transf (AST/SGOT) 25 U/L (15-37) Alanine Aminotransferase (ALT/SGPT) 46 U/L (12-78) Alkaline Phosphatase 54 U/L (46-116) Total Creatine Kinase 240 U/L (26-308) Creatine Kinase MB 4.4 NG/ML (0.0-3.6) Creatine Kinase MB Relative Index 1.8 Troponin I 0.000 ng/mL (0.000-0.056) Total Protein 7.9 G/DL (6.4-8.2) Albumin 4.1 G/DL (3.4-5.0) Globulin 3.8 g/dL Albumin/Globulin Ratio 1.1 (1.0-2.7) EKG Diagnostic Results Rate: normal Rhythm: NSR ST Segments: no acute changes ASA given to the pt in ED: No Rhythm Strip Diag. Results EP Interpretation: yes Rhythm: NSR, no PVC's, no ectopy Chest X-Ray Diagnostic Results Chest X-Ray Diagnostic Results : Chest X-Ray Ordered: Yes # of Views/Limited/Complete: 1 View Indication: Chest Pain EP Interpretation: Yes Interpretation: no consolidation, no effusion, no pneumothorax, no acute cardiopulmonary disease Impression: No acute disease Electronically Signed by: Electronically signed by Fahad Marin MD Last Vital Signs Date Time Temp Pulse Resp B/P (MAP) Pulse Ox O2 Delivery O2 Flow Rate FiO2 05/29/17 14:38 101 21 Room Air 05/29/17 14:33 97.9 133/90 97 97.9 Status: improved Disposition: HOME, SELF-CARE Condition: Stable FAHAD MARIN M.D. May 29, 2017 14:59
[2017-05-29 15:04] LABS: BASOPHILS % (AUTO) 1.1 % (0.0-2.0); EOSINOPHILS % (AUTO) 1.9 % (0.0-3.0); HEMATOCRIT 43.7 % (42.0-52.0); HEMOGLOBIN 15.1 G/DL (14.2-18.0); LYMPHOCYTES % (AUTO) 19.5 % (20.0-45.0); MEAN CORPUSCULAR VOLUME 94 FL (80-99); MONOCYTES % (AUTO) 7.8 % (1.0-10.0); NEUTROPHILS % (AUTO) 69.6 % (45.0-75.0); PLATELET COUNT 220 K/UL (150-450); RED BLOOD COUNT 4.66 M/UL (4.70-6.10); RED CELL DISTRIBUTION WIDTH 11.7 % (11.6-14.8)
[2017-05-29 15:12] VITALS: BP 116/76
[2017-05-29 15:24] LABS: ANION GAP 9 mmol/L (5-15); BLOOD UREA NITROGEN 6 mg/dL (7-18); CALCIUM 9.4 MG/DL (8.5-10.1); CARBON DIOXIDE 29 MMOL/L (21-32); CHLORIDE 103 MMOL/L (98-107); CREATININE 0.8 MG/DL (0.55-1.30); POTASSIUM 3.9 MMOL/L (3.5-5.1); SODIUM 141 MMOL/L (136-145)
[2017-05-29 15:37] LABS: ALANINE AMINOTRANSFERASE 46 U/L (12-78); ALBUMIN 4.1 G/DL (3.4-5.0); ALBUMIN/GLOBULIN RATIO 1.1 (1.0-2.7); ALKALINE PHOSPHATASE 54 U/L (46-116); ASPARTATE AMINO TRANSFERASE 25 U/L (15-37); BILIRUBIN,TOTAL 0.5 MG/DL (0.2-1.0); CKMB 4.4 NG/ML (0.0-3.6); CREATINE KINASE 240 U/L (26-308)
[2017-05-29 15:48] VITALS: BP 116/76
--- NOTE | 2017-05-29 15:48 | Diagnostic Imaging Report ---
Indication: Chest pain Technique: One view of the chest Comparison: To 03/20/2018 Findings: Lungs and pleural spaces are clear. Heart size is normal. No significant change Impression: No acute process
--- NOTE | 2017-05-31 11:37 | Cardiology Report ---
APPROVED REPORT EKG Measurement Heart [id number] Normal sinus rhythm Prolonged QT Abnormal ECG
== END 2017-05-29 15:49 | disposition home or self-care (01) ==
LOC: EMR 14:55
DX: R07.89 Other chest pain (principal); I10 Essential (primary) hypertension; F20.9 Schizophrenia, unspecified; Z88.8 Allergy status to other drugs, medicaments and biological substances
CPT/HCPCS: 36415; 71045; 80053; 82550; 82553; 84484; 85025; 93005; 99284